=== PATIENT | male | born 1960 | race Caucasian/White ===

== ENCOUNTER → 2021-02-14 14:29 | Outpatient (CLI) | payer MEDICARE, MEDICAID, SELFPAY ==
--- NOTE | 2021-02-14 14:30 | US_ITS ---
PROCEDURE: US KIDNEY CLINICAL INDICATION: Hypertension, possible left renal mass COMPARISON: No exams were available for comparison FINDINGS: The right kidney is 12 x 6 x 5 cm. No hydronephrosis, cortical thinning, or renal mass or perinephric fluid collection is evident. The left kidney is 11 x 6 5 cm. No hydronephrosis, cortical thinning, or renal mass or perinephric fluid collection is evident. IMPRESSION: Unremarkable bilateral renal ultrasound. The exam is fairly limited secondary to patient's body habitus. If there is indeed a suspicion of the left renal mass then, CT without and with contrast with renal protocol would be suggested for further evaluation. Dictated by: Agustin Weems MD 02/14/2021 18:00 Agustin Weems MD in [place] 02/14/2021 18:00
== END ==
PROVIDERS: PCP Family Medicine; Visit Provider Urology
DX: N28.89 Other specified disorders of kidney and ureter (principal)
CPT/HCPCS: 76770

== ENCOUNTER → 2021-09-01 08:49 | Outpatient (CLI) | payer MEDICARE, MEDICAID, SELFPAY ==
--- NOTE | 2021-09-01 08:49 | US_ITS ---
FINAL REPORT CLINICAL HISTORY: .fu bilat kidneys--?? mass lt kid-- COMPARISON: 02/14/2021 FINDINGS: RENAL ULTRASOUND Ultrasound images of the kidneys were obtained. Technically difficult study secondary to patient respiratory motion. The right kidney measures 11.2 cm. No mass or hydronephrosis is identified. The left kidney measures 10.3 cm. No mass or hydronephrosis is identified. IMPRESSION: Technically difficult study secondary to respiratory motion. No mass identified. Consider renal mass protocol CT. Reviewed, Interpreted and Dictated by Maldonado Ivory III, MD Transcribed by Dian Taylor Authenticated by Maldonado Ivory III, MD on 09/01/2021 11:23:48 AM [facility]
== END ==
PROVIDERS: PCP Urology; Visit Provider Urology
DX: N28.89 Other specified disorders of kidney and ureter (principal)
CPT/HCPCS: 76770